=== PATIENT | male | born 1980 | race Caucasian/White ===

== ENCOUNTER 2017-10-24 15:22 | Emergency (ER) | payer OTHER ==
--- NOTE | 2017-10-24 16:39 | XR ---
Right hand HISTORY: Pain and laceration from metal in the area of the fifth metacarpal 3 views of the right hand There is lucency in the soft tissues at the level of the fifth metacarpal compatible with patient's h istory of laceration. No radiopaque foreign body. No evident fracture or dislocation. IMPRESSION: Soft tissue injury.
[2017-10-24] MEDS ORDERED: DIPH,PERTUS(ACELL)TETVAC-LF 0.5 ML VIAL IM ONE (17:01)
[2017-10-24] MEDS ORDERED: LIDOCAINE 1% INJ 10MG/ML (20 ML MDV) SQ ONE (17:21)
--- NOTE | 2017-10-24 17:30 | ED ---
General Adult HPI - General Chief complaint: Wound/Laceration Stated complaint: Hnd Laceration Time Seen by Provider: 10/24/17 16:18 Source: patient, RN notes reviewed Mode of arrival: ambulatory Limitations: no limitations - History of Present Illness Initial comments: 37-year-old male presents to the emergency department for a chief complaint of laceration to the dorsal right hand. Patient was trying to start a leaf blower when he accidentally lacerated his hand on a fan. Patient denies hitting his head or any other injuries. Patient states he can move his digits without any difficulty. Patient denies having surgery on the arm before. Patient has no other complaints at this time including shortness of breath, chest pain, abdominal pain, nausea or vomiting, headache, or visual changes. - Related Data Home Medications Medication Instructions Recorded Confirmed No Known Home Medications [No 12/09/13 10/24/17 Known Home Medications] Allergies Allergy/AdvReac Type Severity Reaction Status Date / Time No Known Allergies Allergy Verified 10/24/17 15:31 Review of Systems ROS Statement: Those systems with pertinent positive or pertinent negative responses have been documented in the HPI. ROS Other: All systems not noted in ROS Statement are negative. Past Medical History Past Medical History: Seizure Disorder History of Any Multi-Drug Resistant Organisms: None Reported Past Surgical History: Ear Surgery Past Psychological History: No Psychological Hx Reported Smoking Status: Current every day smoker Past Alcohol Use History: Occasional Past Drug Use History: None Reported General Exam Limitations: no limitations General appearance: alert, in no apparent distress Head exam: Present: atraumatic, normocephalic, normal inspection Eye exam: Present: normal appearance ENT exam: Present: normal exam, mucous membranes moist Neck exam: Present: normal inspection. Absent: tenderness, meningismus, lymphadenopathy Respiratory exam: Present: normal lung sounds bilaterally. Absent: respiratory distress, wheezes, rales, rhonchi, stridor Cardiovascular Exam: Present: regular rate, normal rhythm, normal heart sounds. Absent: systolic murmur, diastolic murmur, rubs, gallop, clicks Extremities exam: Present: full ROM (Full range of motion of all digits in the right hand including the fifth digit. Patient has full flexion and extension of the fifth MCP PIP and DIP joints.), tenderness (Tenderness to the laceration site. No tenderness elsewhere in the right hand including the scaphoid.), normal capillary refill (Refill less than 2 seconds and radial pulse 2+ in the right upper extremity including the fifth digit.), other (There is a 3 cm laceration on the dorsal aspect of the right hand just proximal to the fifth MCP joint.) Course Vital Signs 10/24/17 15:29 Temperature 98.5 F Pulse Rate 86 Respiratory 18 Rate Blood Pressure 175/100 O2 Sat by Pulse 97 Oximetry Procedures - Procedures Initial comment: Body area: Dorsal right hand just proximal to the fifth MCP joint Laceration length: 3 cm Foreign bodies: no foreign bodies Tendon involvement: none Nerve involvement: none Vascular damage: no Anesthesia: local infiltration Local anesthetic: 3 mL 1% lidocaine Preparation: Patient was prepped and draped in the usual sterile fashion. Irrigation solution: saline Irrigation method:sterile water jet lavage Skin closure:5-0 Ethilon using sterile technique Number of sutures: 7 Technique: interupted Dressing: antibiotic ointment/ gauze Patient tolerance: Patient tolerated the procedure well with no immediate complications. Medical Decision Making - Medical Decision Making 37-year-old male presents to the emergency department for a chief complaint of laceration to the dorsal right hand one hour ago. Patient was starting leaf blower when he extended lacerated his hand on a fan that was metal. There is a 3 cm laceration on the dorsal right hand just proximal to the MCP joint. Patient has full range motion in the right hand including the fifth MCP joint. No deep structures injured. Patient was given a tetanus in the emergency department. Wound was soaked in warm soapy water. He was then cleaned with iodine. Sterile technique was used to apply 7 sutures. Patient will return in 7-10 days to have them removed. He will return earlier if he has any signs of infection or worsening symptoms that he was educated about. He will follow up with primary care in 1-2 days. Disposition Clinical Impression: Laceration Disposition: HOME SELF-CARE Condition: Good Instructions: Care For Your Stitches (ED), Laceration (ED) Additional Instructions: Please rest ice and elevate the right hand. Please keep the area clean. Monitor for signs of infection such as spreading redness streaking redness fever or drainage and return if these or any other worsening symptoms occur. Follow-up with primary care in 1-2 days. Return to the emergency department in 7-10 days to have sutures removed. Is patient prescribed a controlled substance at d/c from ED?: No Referrals: Russ Mays MD [Primary Care Provider] - 1-2 days Time of Disposition: 17:50
[2017-10-24 18:08] VITALS: BP 123/56; PULSE 77; RESP 20; TEMP 98
== END 2017-10-24 18:00 | disposition home or self-care (01) ==
LOC: EC 15:22
DX: S61.411A Laceration without foreign body of right hand, initial encounter (principal); F17.200 Nicotine dependence, unspecified, uncomplicated; Z23 Encounter for immunization; W29.3XXA Contact with powered garden and outdoor hand tools and machinery, initial encounter
CPT/HCPCS: 73130; 90715; 99283; 12002; 90471; J2001